=== PATIENT | female | born 1970 | race African-American/Black ===

== ENCOUNTER 2020-10-19 15:06 | Emergency (ER) | payer SELFPAY ==
[~2020-10-19] VITALS: Ht 154.9 cm; Wt 100.0 kg
[2020-10-19 15:14] VITALS: BP 126/71
== END 2020-10-19 18:22 | disposition home or self-care (01) ==
LOC: EMS 15:09
DX: R11.0 Nausea (principal); Z20.822 Contact with and (suspected) exposure to COVID-19
CPT/HCPCS: 99283; U0003